=== PATIENT | male | born 1970 | race Caucasian/White ===

== ENCOUNTER → 2020-06-25 | Outpatient (CLI) | payer OTHER ==
[~2020-06-25] VITALS: Ht 165.1 cm; Wt 56.6 kg
[~2020-06-25] MED LIST: CENTRUM SILVER1 EAC2 PO; CYCLOBENZAPRINE5 MG PO; HYDROCODON-ACE1 EA12 PO; HYDROCODONE-ACE15 ML PO; LIPITOR40 MG PO; MOBIC15 MG PO; PRINIVIL20 MG PO; SERTRALINE HCL50 MG PO; SIMVASTATIN40 MG PO; VITAMIN B-12500 MCG PO; VITAMIN D1000 UNI1 PO; XANAX1 MG PO
--- NOTE | ~2020-06-25 | HPC ---
[facility] [place] [address] PAIN MANAGEMENT CONSULTATION Name: MILLI WALKER [facility] #[facility] [id number] Admission: 06/25/20 Attend Phys: Jose Anderson MD Discharge: Date of : 72 Report #: [id number] THIS REPORT FOR: cc: Nader Mckeon MD, Cora A. MD Brown, N. Wayne MD ~ CC: Adela Mckeon MD DATE OF SERVICE: 06/25/2020 CHIEF COMPLAINT: Low back and hip pain. HISTORY: The patient is a 50-year-old gentleman who has been referred to the pain clinic for evaluation of low back pain. He has been told that he has a slight bulging disk in his back. He went on a trip to [place]. He slept in a bed that exacerbated his discomfort. He has been experiencing some pain in the left and right lower abdominal area. He has noticed some testicular discomfort. He has been experiencing muscle spasms in the upper portion of his back. He has had some pain and discomfort in his abdomen. He is having a very difficult job working with [employer]. He has used hydrocodone since the 1989. ALLERGIES: No known drug allergies. CURRENT MEDICATIONS: Lisinopril 40 mg, alprazolam 1 mg p.r.n. anxiety, Sertraline, Gridley 7.5 mg 1 p.o. q.i.d. p.r.n. severe pain, Lipitor 40 mg, cyclobenzaprine t.i.d., meloxicam 15 mg, and Tums chewable. PAST MEDICAL HISTORY: Abdominal pain, back pain, osteoarthritis at multiple sites, asthmatic bronchitis, generalized anxiety disorder, sinusitis, allergic rhinitis, hypertension, hyperlipidemia, and lumbar spondylosis, status post surgery. PAST SURGICAL HISTORY: Lumbar laminectomy L5-S1 in 2005. 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 REVIEW OF SYSTEMS: CONSTITUTIONAL: Denies fevers, chills, weight gain, and fatigue. HEENT: Generally unremarkable. HEART: No complaints. LUNGS: Denies significant problems with shortness of breath. [address] [address] PAIN MANAGEMENT CONSULTATION Name: MILLI WALKER Room #: REG [facility].#: [id number] Admission: 06/25/20 Attend Phys: Jose Anderson MD Discharge: Date of : 72 Report #: [id number] GENITOURINARY: No significant complaints. MUSCULOSKELETAL: The patient complains of back pain, joint pain and discomfort. No new neurological complaints. PSYCHOLOGIC: Has caused some complaints of anxiety. SKIN: Denies significant problems with bruising. PHYSICAL EXAMINATION: GENERAL: The patient is a well-developed, well-nourished white male. Appears his stated age. He is alert and oriented x 3. His affect is appropriate. Speech is fluent. HEENT: Normocephalic, atraumatic. Extraocular eye muscles intact. Sclerae nonicteric. Mucous membranes are moist. NECK: Without adenopathy. EXTREMITIES: Upper extremity muscle strength judged to be 5-/5 for the major muscle groups in the upper extremity. ABDOMEN: Generally nontender. The patient complains of some pain and discomfort in the low back area. GENITOURINARY: The patient has some pain and discomfort radiating down into the area of the left and right testicle. Palpation in the area of the anterior superior iliac spine areas near the ilioinguinal area causes worsening of pain and discomfort in the lower abdominal area and in the testicular areas bilaterally. MUSCULOSKELETAL: The patient without significant scoliosis, kyphosis, or lordosis. The patient has a well-healed scar in the lower portion of his back. PAIN CLINIC ASSESSMENT/PQRS 1. History of osteoarthritis involving his back, hands, and elbows. He is not being treated for rheumatoid arthritis. 2. Height 5 feet 5 inches, weight 124 pounds, BMI is 20. 3. Vital signs: Blood pressure 146/108, pulse 98, respiratory rate 18, room air saturation is 99%. 4. Pain intensity 8/10. 5. Fall risk. The patient has not fallen in the last 3 months. 6. Blood thinner. The patient is not on a blood thinning medication. 7. Hypertension. The patient is being treated for hypertension. 8. Opioids greater than 6 weeks. The patient receives his medications from his primary physician, moderate risk for opioid use. 9. Functional assessment tool 46/70. 10. Recreational drug use. The patient denies. 11. Tobacco: The patient smokes half pack of cigarettes per day and has smoked for 30 years. 12. Alcohol. The patient denies use of alcoholic beverages. LABORATORY DATA: MRI of the lumbar spine dated 05/12/2020: 1. L3-L4 mild concentric disk bulge and facet hypertrophy. Mild bilateral neural foraminal narrowing. [facility] [address] [place] [address] PAIN MANAGEMENT CONSULTATION Name: MILLI WALKER Room #: REG [facility] Young#: [id number] Admission: 06/25/20 Attend Phys: Jose Anderson MD Discharge: Date of : 72 Report #: [id number] 2. L4-L5, mild concentric disk bulging and facet arthropathy. Moderate bilateral neural foraminal narrowing. 3. L5-S1, mild concentric disk bulging and facet arthropathy. Moderate bilateral neural foraminal narrowing. IMPRESSION: 1. This is causing disk bulging and facet arthropathy causes moderate bilateral neural foraminal narrowing at L4-L5 and at L5-S1. 2. Lumbar radicular pain involving the area of the ilioinguinal nerves and low back area at L4-L5 distribution. 3. Abdominal pain. 4. Back pain. 5. Osteoarthritis at multiple sites. 6. Asthmatic bronchitis. 7. Generalized anxiety disorder. 8. Sinusitis. 9. Allergic rhinitis. 10. Hypertension. 11. Hyperlipidemia. 12. Lumbar spondylosis, status post surgery. RECOMMENDATIONS: We discussed treatment options with the patient. We will consider the possibility of an epidural steroid injection in the near future. The patient will return to the Pain Clinic. Possibility of an epidural injection and possibility of other medications such as gabapentin or Lyrica. By: [phone] Jose Anderson MD /JAMES
[2020-06-25 12:53] VITALS: BP 146/108
--- NOTE | 2020-06-25 13:08 | NUR ---
Pain Clinic Assessment: 1. History of Osteoarthritis: BACK HANDS ELBOWS History of Rheumatoid Arthritis: Not Applicable 2. Height: 5 ft. 5 in. 165.1 cm. Weight: 124.8 lb. oz. 56.609 kg. Patient's BMI: 20.8 3. Vital Signs: BP: 146/108 Pulse: 98 Resp: 18 Temp: 02 Sat: 99 ECG Mon: 4. Pain Intensity: 8-10 5. Fall Risk: Dizziness: N Needs help standing or walking: N Fallen in the last 3 months: N Fall risk comments: 6. Patient on Blood Thinner: None 7. History of Hypertension: Y 8. Opioid Therapy greater than 6 weeks: Y Opiate Contract Signed: 9. Risk Assessment Tool Provided: 4-MODERATE RISK 10. Functional Assessment Tool: 11. Recreational Drug Use: Never Drug Type: Tobacco Use: Current Some Day Smoker Tobacco Type: Cigarettes Amount or Packs/day: 1/2 PACK How Many Years: 30 Alcohol Use: No Frequency: Quant:
== END ==
LOC: PAIN 06-24 13:47
PROVIDERS: ATTEND Anesthesiology Pain Medicine
DX: M51.27 Other intervertebral disc displacement, lumbosacral region (principal); M48.07 Spinal stenosis, lumbosacral region; M19.90 Unspecified osteoarthritis, unspecified site; M47.816 Spondylosis without myelopathy or radiculopathy, lumbar region; I10 Essential (primary) hypertension; E78.5 Hyperlipidemia, unspecified; Z68.20 Body mass index [BMI] 20.0-20.9, adult; Z98.890 Other specified postprocedural states; Z79.899 Other long term (current) drug therapy

== ENCOUNTER → 2020-06-25 | Outpatient (CLI) | payer OTHER | LOC: ULTRA 15:44 | PROVIDERS: ATTEND Family Medicine | DX: N43.3 Hydrocele, unspecified (principal) ==

== ENCOUNTER → 2020-06-30 | Outpatient (CLI) | payer OTHER | LOC: CAT 09:36 | PROVIDERS: ATTEND Family Medicine | DX: R16.1 Splenomegaly, not elsewhere classified (principal); K44.9 Diaphragmatic hernia without obstruction or gangrene; K76.89 Other specified diseases of liver; N50.819 Testicular pain, unspecified ==